=== PATIENT | female | born 1945 | race Caucasian/White ===

== ENCOUNTER 2021-05-11 17:47 | Emergency (ER) | payer MEDICARE ==
[~2021-05-11] VITALS: Ht 160 cm; Wt 59.0 kg
[~2021-05-11 17:47] MED LIST: ADULT LOW DOSE81 MG PO; CEPHALEXIN500 M1 PO; ONDANSETRON ODT4 MG PO
[2021-05-11] MEDS ORDERED: VITAMIN D310 MC4 PO (19:42)
[2021-05-11] MEDS ORDERED: FOLIC ACID1 MG PO (19:43)
[2021-05-11] MEDS ORDERED: VITAMIN B COMP1 EAC1 PO (19:43)
[2021-05-11] MEDS ORDERED: MACROBID 100 M100 MG PO (21:32)
== END 2021-05-11 22:07 | disposition home or self-care (01) ==
LOC: ED 17:47
DX: R19.7 Diarrhea, unspecified (principal); N39.0 Urinary tract infection, site not specified; I10 Essential (primary) hypertension; E78.00 Pure hypercholesterolemia, unspecified; Z87.891 Personal history of nicotine dependence; Z79.899 Other long term (current) drug therapy
CPT/HCPCS: 36415; 80053; 81001; 83735; 85025; 87088; 99284; J7040

== ENCOUNTER 2021-12-08 11:05 | Emergency (ER) | payer OTHER, MEDICARE ==
[~2021-12-08] VITALS: Ht 160 cm; Wt 63.5 kg
[~2021-12-08 11:05] MED LIST changes: +FOLIC ACID1 MG PO; +MACROBID 100 M100 MG PO; +VITAMIN B COMP1 EAC1 PO; +VITAMIN D310 MC4 PO
== END 2021-12-08 13:35 | disposition home or self-care (01) ==
LOC: ED 11:05
DX: S00.03XA Contusion of scalp, initial encounter (principal); S00.83XA Contusion of other part of head, initial encounter; V43.52XA Car driver injured in collision with other type car in traffic accident, initial encounter; I10 Essential (primary) hypertension; E78.00 Pure hypercholesterolemia, unspecified; Z87.891 Personal history of nicotine dependence
CPT/HCPCS: 36415; 70450; 71045; 72125; 72170; 80053; 82150; 82553; 83690; 85025; 86850; 86900; 86901; 99284-25; G0480

== ENCOUNTER 2023-11-13 15:47 | Emergency (ER) | payer MEDICARE ==
[~2023-11-13] VITALS: Ht 160 cm; Wt 53.4 kg
[~2023-11-13 15:47] MED LIST changes: +ASPIRIN REGIMEN81 MG PO; +LEVOTHYROXINE25 MC1 PO; +LIPITOR20 MG PO; +METOPROLOL SUCC25 MG PO
[2023-11-13] MEDS ORDERED: SODIUM CHLORIDE 0.9% 1,000 ML IV PRN (16:15)
[2023-11-13 16:49] LABS: BASOPHILS 0.4 % (0-2); EOSINOPHILS 2.6 % (0-6); HEMATOCRIT 37.4 % (35.0-50.0); HEMOGLOBIN 12.7 g/dL (12.0-18.0); LYMPHOCYTES 6.6 % (24-44); MCHC 33.9 g/dl (30-36); MCV 91.6 fl (81-99); MONOCYTES 10.4 % (0-12); PLATELET COUNT 161 K/uL (140-440); RBC 4.09 M/ul (4.3-5.7); RDW 13.2 (10.5-15.0)
[2023-11-13 17:04] LABS: ALBUMIN 3.5 g/dL (3.4-5.0); ALBUMIN/GLOBULIN RATIO 0.92 (1.1-2.4); ANION GAP 11.3 (7-21); BILIRUBIN, TOTAL 0.6 ng/dL (0.2-1.0); BUN/CREATININE RATIO 15.88 (6.0-28.6); CREATININE, SERUM 1.07 mg/dL (0.55-1.02); POTASSIUM 3.3 mmol/L (3.5-5.1); PROTEIN, TOTAL 7.3 g/dL (6.4-8.2)
[2023-11-13 17:18] LABS: INFLUENZA B NAA NEGATIVE (NEGATIVE); RESPIRATORY SYNCYTIAL VIR NAA NEGATIVE (NEGATIVE)
[2023-11-13 17:58] LABS: BILIRUBIN, URINE NEGATIVE (negative); BLOOD/HGB, URINE TRACE-I (Negative); KETONE, URINE NEGATIVE (Negative); LEUK ESTERASE, URINE NEGATIVE (negative); NITRITE, URINE POSITIVE (negative)
[2023-11-13 18:03] LABS: EPITHELIAL CELLS, URINE SQUAMOUS 2+ /lpf (0-1+)
[2023-11-13 18:04] LABS: BACTERIA, URINE 4+ /hpf (negative); CASTS, URINE NONE SEEN \\lpf; COLLECTION TYPE, URINE CLEAN CATCH; CRYSTALS, URINE NONE SEEN (0-1+); REFLEX CULTURE, URINE No (No)
[2023-11-13] MEDS ORDERED: ACETAMINOPHEN 500 MG TAB PO ONE (18:30)
[2023-11-13] MEDS ORDERED: CEFTRIAXONE/SODIUM CHLORIDE 1 GM/100 ML PIGGYBACK IV ONE (18:30)
[2023-11-13] MEDS ORDERED: PAXLOVID 300-11 EAC1 PO (18:32)
[2023-11-13] MEDS ORDERED: CEFDINIR300 MG PO (18:32)
[2023-11-13 19:20] VITALS: BP 155/64
== END 2023-11-13 19:20 | disposition home or self-care (01) ==
LOC: ED 15:47
PROVIDERS: Emergency Medicine
DX: U07.1 COVID-19 (principal); N39.0 Urinary tract infection, site not specified; F03.90 Unspecified dementia, unspecified severity, without behavioral disturbance, psychotic disturbance, mood disturbance, and anxiety; I10 Essential (primary) hypertension; Z87.891 Personal history of nicotine dependence; Z79.899 Other long term (current) drug therapy; Z79.82 Long term (current) use of aspirin; Z79.890 Hormone replacement therapy
CPT/HCPCS: 36415; 51701; 70450; 80053; 81001; 85025; 87502; 99285-25; A9270; J0696; J7030; U0002

== ENCOUNTER 2024-08-21 16:31 | Emergency (ER) | payer MEDICARE ==
[~2024-08-21] VITALS: Ht 160 cm; Wt 51.9 kg
[~2024-08-21 16:31] MED LIST changes: +CEFDINIR300 MG PO; +PAXLOVID 300-11 EAC1 PO
[2024-08-21] MEDS ORDERED: NITROFURANTOIN100 M1 PO (17:11)
[2024-08-21 17:45] LABS: BLOOD/HGB, URINE TRACE-I (Negative); KETONE, URINE TRACE (Negative); LEUK ESTERASE, URINE NEGATIVE (negative); NITRITE, URINE NEGATIVE (negative)
[2024-08-21 17:46] LABS: EPITHELIAL CELLS, URINE SQUAMOUS 2+ /lpf (0-1+)
[2024-08-21 17:47] LABS: BACTERIA, URINE NONE SEEN /hpf (negative); CASTS, URINE NONE SEEN \\lpf; CRYSTALS, URINE NONE SEEN (0-1+); REFLEX CULTURE, URINE No (No)
[2024-08-21 17:53] LABS: BASOPHILS 0.3 % (0.1-1.2); EOSINOPHILS 2.7 % (0.7-5.8); LYMPHOCYTES 6.2 % (19.3-51.7); MCH 30.8 PG (25.6-32.2); MCHC 32.3 g/dL (32.2-35.5); MCV 95.5 fL (79.4-94.8); MONOCYTES 6.7 % (4.7-12.5); NEUTROPHILS 83.8 % (34.0-71.1); RBC 3.99 M/uL (3.93-5.22)
[2024-08-21 18:02] LABS: ALT (SGPT) 26.0 U/L (14-59); AST (SGOT) 18.0 U/L (15-37); GLOMERULAR FILTRATION RATE,EST 48.0 mL/min (>60); PROTEIN, TOTAL 7.5 g/dL (6.4-8.2); UREA NITROGEN 22.0 mg/dL (7-18)
[2024-08-21 18:56] VITALS: BP 137/75
== END 2024-08-21 18:56 | disposition home or self-care (01) ==
LOC: ED 16:31
PROVIDERS: Emergency Medicine
DX: R10.9 Unspecified abdominal pain (principal); I10 Essential (primary) hypertension; E78.00 Pure hypercholesterolemia, unspecified; F03.90 Unspecified dementia, unspecified severity, without behavioral disturbance, psychotic disturbance, mood disturbance, and anxiety; Z87.891 Personal history of nicotine dependence; Z79.82 Long term (current) use of aspirin; Z79.890 Hormone replacement therapy; Z79.899 Other long term (current) drug therapy
CPT/HCPCS: 36415; 51701; 80053; 81001; 83690; 85025; 99284